=== PATIENT | female | born 1980 | race African-American/Black ===

== ENCOUNTER 2018-02-20 06:55 | Inpatient (IN) | payer OTHER ==
[2018-02-20] MEDS ORDERED: ELECTROLYTE-148 SOLN 500 ML IV ONE (07:15)
[2018-02-20 07:57] VITALS: BMI 31.3
[2018-02-20] MEDS ORDERED: CITRIC ACID/SODIUM CITRATE 30 ML UNIT-DOSE CUP PO ONE (08:06)
[2018-02-20] MEDS ORDERED: ELECTROLYTE-148 SOLN 1,000 ML IV SCH (08:15)
[2018-02-20] MEDS ORDERED: PHENYLEPHRINE HCL 10 MG/1 ML SINGLE DOSE VIAL ONE (08:19)
[2018-02-20] MEDS ORDERED: morphine SULFATE/Preservative Free 0.5 MG/ML (1cc Syringe) ONE (08:19)
[2018-02-20] MEDS ORDERED: ceFAZolin SODIUM 1 GM VIAL ONE (08:19)
--- NOTE | 2018-02-20 08:21 | HP ---
Past Medical History - Primary Care Physician PCP:: Harika Mcdonald - Admission Chief Complaint: 37 yrs , previous c/section x2 , admitted for repeat c/ section, requests for repeat c/section .39 weeks gestation by dates & sono History of Present Illness: PNC at 2, [facility] wt gain 47 lbs . h/o with IUD, [facility] before pt came to [address] [place] [address] panel : 07/12/17 O Pos, Hbsag neg, Rpr nr, Rubella immune, Varicella non immune, Sickle trait pos ( significant other sickle neg ) , pap NILM, Hpv neg, gc/ct neg . Hiv neg Urine gbs pos treated with Po keflex 11/29/17 : 1 hr gtt 146, Quantiferon neg, rpr nr, 3 hr GTT wnl ( 75, 159, 168, 137 ) AMA, declined genetic counselling NT screen, Modified Sequential neg growth sono done by [facility] last sono on 01/13/18 33.5 weeks, ant placenta, vx, lucius 14, efw 5'13' h/o Cold sores , Hsv1 Igg & Hsv2 igg pos . 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 G2 Repeat c/section 03/25/15 7'15" [facility] ) ...Term: 2 ...LMP: 05/22/17 ... Weeks Gestation by Dates: 39.1 ...EDC by Dates: 02/26/18 ...EDC by Sono: 02/26/18 (39.1 weeks ) Heme/Onc: Yes: Anemia (rx po iron & pnv) Infectious Disease: No: AIDS, HIV, STD's, Tuberculosis Psych: No: Addictions, Anxiety, Bipolar, Depression, Panic, Psychosis, Schizophrenia, Other Endocrine: No: Diabetes Insipidus, Diabetes Mellitus - Past Surgical History Past Surgical History: Yes: (05/06/10t [facility] hosp 03/25/15 at [facility] Repeat c/s) Hx Myomectomy: No Hx Transabdominal Cerclage: No - Smoking History Smoking history: Never smoked Have you smoked in the past 12 months: No - Alcohol/Substance Use Hx Alcohol Use: No History of Substance Use: reports: None - Social History History of Recent Travel: No Home Medications - Allergies Allergies/Adverse Reactions: Allergies Allergy/AdvReac Type Severity Reaction Status Date / Time No Known Drug Allergies Allergy Verified 03/25/15 07:15 OKRA Allergy Mild Itching Uncoded 03/25/15 07:00 - Home Medications Home Medications: Ambulatory Orders Ferrous Sulfate [Feosol] 325 mg PO BID 03/24/15 Pnv,Calcium 72/Iron/Folic Acid [ Plus Tablet] 1 each PO DAILY 03/24/15 Acetaminophen [Tylenol .Regular Strength -] 650 mg PO Q4H PRN #0 tablet Ibuprofen [Motrin -] 600 mg PO Q4H PRN #20 tablet 03/27/15 Vitamins ([facility]) - 1 tab PO DAILY tablet 03/27/15 Home Medications (free text): valtrex 500 mg po one daily Physical Exam - Maternity Vital Signs: Vital Signs Temperature 98.4 F 02/20/18 06:55 Pulse Rate 89 02/20/18 06:55 Respiratory Rate 18 02/20/18 06:55 Blood Pressure 122/76 02/20/18 06:55 O2 Sat by Pulse Oximetry (%) Selected Entries 02/20/18 06:55 Weight 194 lb Constitutional: Yes: Well Nourished, Obese Eyes: Yes: WNL HENT: Yes: WNL, Normocephalic Neck: Yes: WNL Cardiovascular: Yes: WNL, Regular Rate and Rhythm Lungs: Clear to auscultation Breast(s): Yes: WNL - Abdominal Exam/OB Fundal Height: 38 Number of Fetuses: Single Presentation: Vertex Contractions: Yes Regularity: Irregular (6-7 min) Intensity: Mild Monitor Mode: External Heart Rate (range): 145 Heart Rate Location: [facility] Category: I Accelerations: Uniform Decelerations: None - Vaginal Exam/OB Vaginal Bleediing: No Presentation: Vertex/Position - Physical Exam Musculoskeletal: Yes: WNL Extremities: Yes: WNL. No: Calf Tenderness Edema: LLE: 1+, RLE: 1+ Integumentary: Yes: Incision (keloid ,pfannensteil scar) Deep Tendon Reflex Grade: Normal +2 ...Motor Strength: WNL Psychiatric: Yes: WNL, Alert, Oriented - Labs Lab Results: Laboratory Tests 02/17/18 02/17/18 02/17/18 15:49 15:49 15:49 WBC 8.9 Hgb 12.0 Hct 37.2 D Plt Count 178 Neutrophils % 70.2 Lymphocytes % 19.1 D Monocytes % 7.2 PT with INR 11.10 INR 0.94 Sodium 136 Potassium 3.9 Chloride 102 Carbon Dioxide 24 BUN 4 L Creatinine 0.4 L Random Glucose 87 Calcium 8.9 Total Bilirubin 0.3 AST 25 ALT 24 RPR Titer 02/17/18 15:49 WBC Hgb Hct Plt Count Neutrophils % Lymphocytes % Monocytes % PT with INR INR Sodium Potassium Chloride Carbon Dioxide BUN Creatinine Random Glucose Calcium Total Bilirubin AST ALT RPR Titer Nonreactive Hemorrhage Risk Assessment - Risk Factors Medium Risk Factors: Yes: Prior , uterine surgery,or multiple laparotomies Risk Score: 1 Risk Level: Medium Risk Problem List - Problems (1) Positive GBS test Code(s): B95.1 - STREPTOCOCCUS, GROUP B, CAUSING DISEASES CLASSD ELSWHR (2) Previous delivery affecting Code(s): O34.21 - MATERNAL CARE FOR SCAR FROM PREVIOUS * DO NOT USE * (3) with 39 completed weeks gestation Code(s): Z3A.39 - 39 WEEKS GESTATION OF (4) AMA (advanced maternal age) multigravida 35+ Code(s): O09.529 - SUPERVISION OF ELDERLY MULTIGRAVIDA, UNSPECIFIED TRIMESTER (5) Multiparity Code(s): Z64.1 - PROBLEMS RELATED TO MULTIPARITY Assessment/Plan 37 yrs , previous c/s x2 , gbs pos voluntory sterlization Plan repeat LFTC/section & BTL under spinal anesthesia
[2018-02-20] MEDS ORDERED: ACETAMINOPHEN 325 MG TABLET (FP) PO PRN (08:22)
[2018-02-20] MEDS ORDERED: BUPIVACAINE 0.75% IN DEXTROSE/PF 2ML AMPULE NR ONE (08:29)
[2018-02-20 09:39] LABS: ARTERIAL BLD GAS O2 SATURATION 5.6 % (90-98.9); ARTERIAL BLOOD GAS BASE EXCESS -1.2 meq/l (-2-2)
[2018-02-20 09:43] LABS: ARTERIAL BLOOD GAS PCO2 74.2 mmHg (35-45); ARTERIAL BLOOD GAS PO2 8.4 mmHg (80-100); ARTERIAL BLOOD GAS pH 7.21 (7.35-7.45)
[2018-02-20] MEDS ORDERED: IBUPROFEN 800 MG/8 ML IJ IVPB PRN (09:43)
[2018-02-20] MEDS ORDERED: METHYLERGONOVINE MALEATE 0.2 MG/1 ML AMP IM PRN (09:43)
[2018-02-20] MEDS ORDERED: OXYTOCIN 20 UNITS in 0.9% NS 20 UNIT/1,000 ML INFUS.BAG IV SCH (09:45)
[2018-02-20 09:55] LABS: VENOUS PC02 43.2 mmHg (38-52); VENOUS PH 7.33 (7.32-7.42); VENOUS PO2 22.6 mmHg (28-48)
--- NOTE | 2018-02-20 10:07 | PN ---
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
--- NOTE | 2018-02-20 10:20 | OP ---
Operative Note - Note: Operative Date: 02/20/18 Pre-Operative Diagnosis: 39 weeks, previous c/sx2, voluntary sterilization Operation: repeat LFTC/S & BTL Findings: 8.53AM, baby Girl, 9/9 , wt 9'7' Ht 19" , LOT position, AFluid mecolnium stained Both tubes & ovaries normal both tubes ligated, cut by modified quan technique hemostasis noted Surgeon: Harika Mcdonald Hardness Inspector: Deann Holden) Anesthesiologist/DYNAMICIST: Jan Sellers Anesthesia: Spinal Specimens Removed: incision scar. cord blood segment for cord gas. cord blood. placenta Estimated Blood Loss (mls): 500 Drains, Volume Out (mls): 400 (early urine live color ) Fluid Volume Replaced (mls): 1,900 (2 gm Iv Ancef prior to incision was given ) Operative Report Dictated: Yes
[2018-02-20] MEDS ORDERED: OXYTOCIN 20 UNITS in 0.9% NS 20 UNIT/1,000 ML INFUS.BAG IV ONE (10:48)
--- NOTE | 2018-02-20 11:52 | OP ---
DATE OF OPERATION: 02/20/2018 PREOPERATIVE DIAGNOSIS: At 39 weeks, previous section x2, voluntary sterilization. OPERATION DONE: A repeat low flap transverse section, bilateral tubal ligation. POSTOPERATIVE DIAGNOSIS: At 39 weeks, previous section x2, voluntary sterilization. SURGEON: Harika Mcdonald MD SIZE ROLLER OPERATOR SURGEON: JOAQUÍN Coffey ANESTHESIOLOGIST: Jan Sellers MD ANESTHESIA: Spinal. FINDINGS: This is a 37-year-old 3 para 2-0-0-2, not in labor, at 39 weeks, and she requests for a voluntary sterilization. Also, she has a skin incision, a Pfannenstiel incision, which is a keloid. PROCEDURE: Patients abdomen was shaved, prepped. Huddleston catheter was placed. She was taken to the operating room table. Spinal anesthesia was given. She was in the supine position. Abdomen was painted and draped in the usual manner. The previous incision keloid scar was held with the Allis clamps, and the elliptical incision was made around the keloid, and the keloid was dissected out, and then , the scar tissue anterior rectus sheath was incised transversely. Muscles were from the rectus sheath. Parietal peritoneum was opened vertically. Then, lower flap of the peritoneum was incised transversely, and the bladder was pushed down. Lower uterine segment was incised transversely. The amniotic fluid was meconium stained. The baby was delivered at 8:53 a.m. from LOT position, a baby girl, was 9 , 9, and baby weight is 9 pound 7 ounces, 19 inch height. Cord was clamped, cut, and then, cord segment was sent for the cord blood gas, and the cord blood was collected. Placenta was removed completely with the membranes. Uterine cavity was cleaned. Then, the uterine incision was closed in 2 layers. The first layer was closed with a continuous locking Biosyn 0 suture, second layer was a continuous intermittently locking with vertical mattress sutures and the second suture with bladder peritoneum was included. Hemostasis was verified. Both tubes and ovaries were normal. The tubes were identified with the fimbriated ends. First the left side, the mid ampullary portion of the tube was doubly ligated with a 2-0 plain catgut, and a portion of the tube above the ligature was cut and sent for pathology examination. Endosalpinx was cauterized. A similar procedure was done on the right tube, and it was a mid ampullary portion of the tube, which was dissected. Both the sides hemostasis was noted. Sponge, instrument, and needle counts were correct. Irrigation was done. Then, the closure of the abdomen was done. The parietal peritoneum was closed with Vicryl 0 suture. Then, the muscles were approximated together with interrupted suture with a Vicryl 0 suture. Then , the anterior rectus sheath was mobilized from the skin scar. Then, the rectus sheath was closed with a Vicryl 0 suture. Continuous sutures were taken. Hemostasis was checked in the subcutaneous tissue in the scar tissue. Then, subcutaneous tissue was approximated with 3-0 Vicryl, and the subcuticular sutures were taken with 4-0 Biosyn suture. Hemostasis was verified, Steri-Strips were applied, and pressure dressing was given. Blood clots were removed from the vagina. Patient tolerated the procedure well. She was transferred to the recovery room in stable condition, and her estimated blood loss was 500 mL. Urine output intraoperatively was 400 mL, it was live colored, and she received 2 g of IV Ancef prior to the incision. Luis [id number] MTDD
[2018-02-20] MEDS: IBUPROFEN 800 MG/8 ML IJ IVPB PRN ×2 (12:16→19:34)
--- NOTE | 2018-02-20 12:57 | SURG ---
Surgery Rehabilitation Supervisor Note Rehabilitation Supervisor: Deann Holden PA-C Date of Service: 02/20/18 Diagnosis: 39 weeks, previous c/sx2, voluntary sterilization Procedure: repeat LFTC/S & BTL I was present for the entirety of the operative procedure. For further detail, please refer to operative report. Visit type - Case Type Case Type: Scheduled - Emergency Emergency Visit: No - New patient This patient is new to me today: Yes Date on this admission: 02/20/18
[2018-02-20] MEDS: CEFAZOLIN 1 GM/D5W 1 GM/50 ML BAG IVPB SCH (15:40)
[2018-02-21] MEDS: CEFAZOLIN 1 GM/D5W 1 GM/50 ML BAG IVPB SCH ×2 (00:32→08:20)
[2018-02-21] MEDS: IBUPROFEN 800 MG/8 ML IJ IVPB PRN (03:16)
[2018-02-21 06:52] LABS: BASO % 0.6 % (0-2.0); EOS % 1.3 % (0-4.5); HEMATOCRIT 36.6 % (32.4-45.2); HEMOGLOBIN 11.6 GM/dL (10.7-15.3); LYMPH % 14.5 % (8-40); MCH 26.9 pg (25.7-33.7); MCHC 31.8 g/dl (32.0-36.0); MEAN CELL VOLUME 84.7 fl (80-96); MEAN PLT VOLUME 8.6 fl (7.5-11.1); NEUT % 75.6 % (42.8-82.8); PLATELET COUNT 163 K/MM3 (134-434); RBC 4.32 M/mm3 (3.60-5.2); RDW 17.2 % (11.6-15.6); WHITE BLOOD COUNT 9.5 K/mm3 (4.0-10.0)
[2018-02-21] MEDS: IBUPROFEN 600 MG TABLET (FP) PO PRN ×3 (08:24→17:49)
[2018-02-21] MEDS: SIMETHICONE 80 MG TAB.CHEW (FP) PO PRN ×4 (08:24→21:07)
[2018-02-21] MEDS: oxyCODONE HCL 5 MG TABLET PO PRN ×4 (08:25→22:08)
--- NOTE | 2018-02-21 09:22 | PN ---
Progress Note (short form) - Note Progress Note: pod 1 doing well, not passing gas yet, sitting on chair, comfortable CBC, BMP 02/21/18 05:15 Last Vital Signs Temp Pulse Resp BP Pulse Ox 97.7 F 104 H 20 120/76 100 02/21/18 06:09 02/21/18 06:09 02/21/18 06:09 02/21/18 06:09 02/20/18 10:50 abdomen soft, mild distension, no cav uterus firm lochia mild no calf tenderness plan ambulate , pain management observe
[2018-02-21] MEDS: ENOXAPARIN NA (PORCINE) 40 MG/0.4 ML DISP.SYRIN SQ SCH (10:00)
[2018-02-21] MEDS: PRENATAL VITAMINS W/ FOLIC ACID TABLET (FP) PO SCH (10:05)
--- NOTE | 2018-02-21 11:08 | PN ---
Progress Note (short form) - Note Progress Note: Anesthesiology post-op 37 y.o. woman POD#1 s/p C/S under spinal with duramorph. She is standing and walking without difficulty, able to use restroom unassisted. Complains only of mild h/a which has improved. VSS. 37 y.o. woman with stable post-operative course. Continue care as per primary team.
[2018-02-21] MEDS: BISACODYL 10 MG SUPP.RECT RC PRN ×2 (12:44→22:09)
[2018-02-21] MEDS: SENNOSIDES/DOCUSATE COMBO (SENNA PLUS) TABLET (UD) PO PRN (21:07)
[2018-02-21] MEDS: FERROUS SO4 325 MG TABLET (FP) PO SCH (21:07)
[2018-02-21] MEDS: ACETAMINOPHEN 325 MG TABLET (FP) PO PRN (22:09)
[2018-02-22] MEDS: SIMETHICONE 80 MG TAB.CHEW (FP) PO PRN ×5 (03:32→20:45)
[2018-02-22] MEDS: oxyCODONE HCL 5 MG TABLET PO PRN ×3 (03:32→11:55)
[2018-02-22] MEDS: ACETAMINOPHEN 325 MG TABLET (FP) PO PRN ×5 (03:33→20:45)
[2018-02-22] MEDS: FERROUS SO4 325 MG TABLET (FP) PO SCH ×2 (10:37→21:03)
[2018-02-22] MEDS: ENOXAPARIN NA (PORCINE) 40 MG/0.4 ML DISP.SYRIN SQ SCH (10:37)
[2018-02-22] MEDS: PRENATAL VITAMINS W/ FOLIC ACID TABLET (FP) PO SCH (10:37)
--- NOTE | 2018-02-22 12:24 | PN ---
Post Progress Note Type of Delivery: Repeat C/S Vital Signs: Vital Signs Temperature 98 F 02/22/18 09:05 Pulse Rate 104 H 02/22/18 09:05 Respiratory Rate 20 02/22/18 09:05 Blood Pressure 130/87 02/22/18 09:05 O2 Sat by Pulse Oximetry (%) 100 02/20/18 10:50 Breast Exam: Yes: Soft Uterus: Yes: Fundus Firm Incision: Yes: Dressing dry and intact Abdomen/GI: Yes: Abdomen soft Lochia: Yes: Rubra Lochia, amount: Small Extremities: Yes: Calves non-tender Perineum: Yes: Intact Activity: Ambulating (Tolerating po. Passed flatus. Complaining of normal postoperative discomforts.) - Labs Labs: CBC WBC 9.5 K/mm3 (4.0-10.0) 02/21/18 05:15 RBC 4.32 M/mm3 (3.60-5.2) 02/21/18 05:15 Hgb 11.6 GM/dL (10.7-15.3) 02/21/18 05:15 Hct 36.6 % (32.4-45.2) 02/21/18 05:15 MCV 84.7 fl (80-96) 02/21/18 05:15 MCH 26.9 pg (25.7-33.7) 02/21/18 05:15 MCHC 31.8 g/dl (32.0-36.0) L 02/21/18 05:15 RDW 17.2 % (11.6-15.6) H 02/21/18 05:15 Plt Count 163 K/MM3 (134-434) 02/21/18 05:15 MPV 8.6 fl (7.5-11.1) 02/21/18 05:15 Absolute Neuts (auto) 7.2 K/mm3 (1.5-8.0) 02/21/18 05:15 Neutrophils % 75.6 % (42.8-82.8) 02/21/18 05:15 Lymphocytes % 14.5 % (8-40) D 02/21/18 05:15 Monocytes % 8.0 % (3.8-10.2) 02/21/18 05:15 Eosinophils % 1.3 % (0-4.5) 02/21/18 05:15 Basophils % 0.6 % (0-2.0) 02/21/18 05:15 Nucleated RBC % 0 % (0-0) 02/21/18 05:15 Assessment/Plan 37yo s/p RLTCS, BTL, PPD#2 Routine PP care Labs reviewed Encouraged OOB, ambulate Motrin, Percocet prn D/C to home POD#4 Dejah Orellana MD
[2018-02-22] MEDS: IBUPROFEN 600 MG TABLET (FP) PO PRN ×2 (16:39→20:42)
[2018-02-23] MEDS: IBUPROFEN 600 MG TABLET (FP) PO PRN ×3 (06:24→23:22)
[2018-02-23] MEDS: ACETAMINOPHEN 325 MG TABLET (FP) PO PRN ×3 (06:26→23:23)
[2018-02-23] MEDS: SIMETHICONE 80 MG TAB.CHEW (FP) PO PRN ×2 (06:34→13:34)
[2018-02-23 08:37] LABS: HEMATOCRIT 31.3 % (32.4-45.2); HEMOGLOBIN 10.3 GM/dL (10.7-15.3); LYMPH % 25.8 % (8-40); MCH 27.3 pg (25.7-33.7); MCHC 32.7 g/dl (32.0-36.0); MEAN CELL VOLUME 83.3 fl (80-96); MEAN PLT VOLUME 8.1 fl (7.5-11.1); NEUT % 60.7 % (42.8-82.8); PLATELET COUNT 192 K/MM3 (134-434); RBC 3.76 M/mm3 (3.60-5.2); RDW 16.6 % (11.6-15.6); WHITE BLOOD COUNT 4.9 K/mm3 (4.0-10.0)
[2018-02-23 08:38] LABS: BASO % 0.5 % (0-2.0); EOS % 2.6 % (0-4.5); MONO % 10.4 % (3.8-10.2)
[2018-02-23] MEDS: PRENATAL VITAMINS W/ FOLIC ACID TABLET (FP) PO SCH (10:56)
[2018-02-23] MEDS: FERROUS SO4 325 MG TABLET (FP) PO SCH ×2 (10:56→23:22)
[2018-02-23] MEDS: ENOXAPARIN NA (PORCINE) 40 MG/0.4 ML DISP.SYRIN SQ SCH (10:56)
--- NOTE | 2018-02-23 12:37 | PN ---
Post Progress Note Type of Delivery: Repeat C/S Vital Signs: Vital Signs Temperature 98.6 F 02/23/18 10:00 Pulse Rate 87 02/23/18 10:00 Respiratory Rate 20 02/23/18 10:00 Blood Pressure 124/74 02/23/18 10:00 O2 Sat by Pulse Oximetry (%) 100 02/20/18 10:50 Uterus: Yes: Fundus below umbilicus Incision: Yes: Dressing dry and intact Abdomen/GI: Yes: Abdomen soft Lochia: Yes: Rubra Lochia, amount: Small Extremities: Yes: Calves non-tender Activity: Ambulating (Tolerating po. Passing flatus. Ambulating without difficulty) - Labs Labs: CBC WBC 4.9 K/mm3 (4.0-10.0) 02/23/18 05:25 RBC 3.76 M/mm3 (3.60-5.2) 02/23/18 05:25 Hgb 10.3 GM/dL (10.7-15.3) L 02/23/18 05:25 Hct 31.3 % (32.4-45.2) L 02/23/18 05:25 MCV 83.3 fl (80-96) 02/23/18 05:25 MCH 27.3 pg (25.7-33.7) 02/23/18 05:25 MCHC 32.7 g/dl (32.0-36.0) 02/23/18 05:25 RDW 16.6 % (11.6-15.6) H 02/23/18 05:25 Plt Count 192 K/MM3 (134-434) 02/23/18 05:25 MPV 8.1 fl (7.5-11.1) 02/23/18 05:25 Absolute Neuts (auto) 3.0 K/mm3 (1.5-8.0) 02/23/18 05:25 Neutrophils % 60.7 % (42.8-82.8) 02/23/18 05:25 Lymphocytes % 25.8 % (8-40) D 02/23/18 05:25 Monocytes % 10.4 % (3.8-10.2) H 02/23/18 05:25 Eosinophils % 2.6 % (0-4.5) D 02/23/18 05:25 Basophils % 0.5 % (0-2.0) 02/23/18 05:25 Nucleated RBC % 0 % (0-0) 02/21/18 05:15
[2018-02-23] MEDS: oxyCODONE HCL 5 MG TABLET PO PRN (14:54)
--- NOTE | 2018-02-23 16:01 | PN ---
Progress Note (short form) - Note Progress Note: Patient complaining of headache and neck stiffness No relief with NSAIDs, Percocet Exacerbated by sitting or standing. Some improvement with laying No light sensitivity BPs stable Concern or possible spinal headache, will discuss with Anesthesia Zoey Orellana MD
--- NOTE | 2018-02-23 16:48 | PN ---
Progress Note (short form) - Note Progress Note: Anesthesia Consult Request to assess the patient regarding headache. Pat is 37 yo female, POD#3 S/p Repeat and BTL under spinal, with no complications or problems when spinal was placed. Co/ headache starating at 13:00 today. Describing tension in back of the neck, with frontal headache when standing and walking. Improved after NSAID and percocet.Since the surgery had a mild headache but today pain 9/10 when standing /sitting and 4-5/10 when lying down. Denies n/v or sensitivity to light.H/o PIH during previous pregnancies, but not thie recent one. Otherwise healthy. Ambulating, tolerating PO. VSS. Afebrile. PE: AAOX3. NAD. Lying on the bed. Changed position to sitting. No limitation on neck /head ROM. TTP posterior neck and thoracic paraspinal muscles. TTP shoulders bilat. A/P: Tension in upper back and neck muscles. Not giving an impression of PDPH currently. Recommending, Fioricet,spasmolytic medication and physical therapy. Please contact us if symptoms worsen or new symptoms, N/v, fever,visaual disturbance.
[2018-02-23] MEDS: SENNOSIDES/DOCUSATE COMBO (SENNA PLUS) TABLET (UD) PO PRN (23:23)
[2018-02-24] MEDS: oxyCODONE HCL 5 MG TABLET PO PRN (05:56)
[2018-02-24] MEDS: ENOXAPARIN NA (PORCINE) 40 MG/0.4 ML DISP.SYRIN SQ SCH (09:25)
[2018-02-24] MEDS: FERROUS SO4 325 MG TABLET (FP) PO SCH (09:25)
--- NOTE | 2018-02-24 09:25 | DS ---
Physical Examination Vital Signs: Vital Signs Temperature 98.6 F 02/23/18 21:23 Pulse Rate 81 02/23/18 21:23 Respiratory Rate 18 02/23/18 21:23 Blood Pressure 118/77 02/23/18 21:23 O2 Sat by Pulse Oximetry (%) 100 02/20/18 10:50 Constitutional: Yes: Well Nourished, No Distress, Calm Eyes: Yes: WNL, Conjunctiva Clear, EOM Intact HENT: Yes: WNL, Atraumatic, Normocephalic Neck: Yes: WNL, Supple, Trachea Midline Cardiovascular: Yes: WNL, Regular Rate and Rhythm Respiratory: Yes: WNL, Regular, CTA Bilaterally Gastrointestinal: Yes: WNL, Normal Bowel Sounds Musculoskeletal: Yes: WNL Extremities: Yes: WNL Edema: No Integumentary: Yes: WNL Neurological: Yes: WNL, Alert, Oriented ...Motor Strength: WNL Psychiatric: Yes: WNL Labs: CBC, BMP 02/23/18 05:25 Discharge Summary Reason For Visit: C SECTION Current Active Problems AMA (advanced maternal age) multigravida 35+ (Acute) Multiparity (Acute) with 39 completed weeks gestation (Acute) Procedures: Principal: RLTCS Other Procedures: BTL Hospital Course: Patient presented for routine RLTCS, BTL She underwent an uncomplicated procedure She met all postoperative milestones She was discharged home on POD#4 Condition: Stable - Instructions Diet, Activity, Other Instructions: Post Instructions DIET: Continue good diet high in protein, calcium, and iron rich foods. Drink at least eight (8) glasses of water daily in addition to other fluids. ___ Regular diet MEDICATIONS: Continue vitamins and iron as previously directed. Motrin and Tylenol may be taken for minor discomfort. ACTIVITY: Mild to moderate exercise may be started in two (2) weeks. Take frequent rest periods. Resume normal activity after six (6) week check up. WOUND CARE OF OPERATIVE SITE: Continue use of perineal bottle until vaginal discharge stops. Keep area clean. Shower daily. Keep abdominal wound dry. Report any drainage or redness to physician. Tub baths, tampons and douches are not permitted for [address] Breast feeding & or Bottle feeding BREAST CARE: (For those that are not ): If engorgement occurs: Wear tight fitting bra. Take Tylenol or Motrin for pain. Apply cold packs (ice in bags to each breast ) FAMILY PLANNING: There are many control alternatives to pursue and they should be discussed at your first office visit. You may resume sexual activity after your six (6) week check up. (Remember, breast feeding is not a contraceptive) NEXT PHYSICIAN APPOINTMENT: Be certain to call for a one (1 ) week appointment, unless otherwise directed. rtc Saturday for wound check Call Clinic or got to Emergency Dept if you have any of the following: Heavy vaginal bleeding Painful urination Leg pain Unusual odor noted to vaginal bleeding High fever Red streaking noted on breast Referrals: Harika Mcdonald MD [Staff Physician] - Disposition: HOME - Home Medications Comprehensive Discharge Medication List: Ambulatory Orders Vitamins ([facility]) - 1 tab PO DAILY 02/20/18 Valacyclovir HCl [Valtrex] 500 mg PO DAILY 02/20/18 Ibuprofen 600 mg PO Q6H PRN #30 tablet 02/22/18 Oxycodone HCl/Acetaminophen [Percocet 5-325 mg Tablet -] 1 - 2 tab PO Q6H PRN # 20 tab MDD 4 02/22/18
[2018-02-24] MEDS: PRENATAL VITAMINS W/ FOLIC ACID TABLET (FP) PO SCH ×2 (09:28→12:01)
[2018-02-24 09:58] VITALS: BP 130/84; PULSE 84; TEMP 98.7
--- NOTE | 2018-02-28 14:31 | PATH ---
Surgical Pathology Report Patient Name: MARISSA MACIAS Med. Rec. #: [id number] /Age/Gender: 1980 (Age: 37) / F Account: [id number] Location: [facility] OBS/COLLECTION DEVELOPMENT LIBRARIAN Taken: 02/20/2018 Received: 02/21/2018 Reported: 02/28/2018 Physicians: Harika Mcdonald M.D. 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 PLACENTA: THIRD TRIMESTER PLACENTA. TRIVASCULAR CORD. MEMBRANES WITH NO DIAGNOSTIC ABNORMALITIES. B. RIGHT FALLOPIAN TUBE, RESECTION: COMPLETE CROSS SECTION OF THE FALLOPIAN TUBE IDENTIFIED. C. LEFT FALLOPIAN TUBE, RESECTION: COMPLETE CROSS SECTION OF THE FALLOPIAN TUBE IDENTIFIED. D. SKIN SCAR, EXCISION: SEGMENT OF SKIN WITH KELOID. Electronically Signed Cammy Garg M.D. Gross Description A. The specimen is received fresh labeled placenta and is a 661 gram, 18.0 x 16.0 x 3.3 cm. placenta with attached membranes and umbilical cord. The attached membranes are rojas, translucent with focal opacities and insert marginally. The umbilical cord measures 23 cm. in length and averages 1.2 cm. in diameter. The cord inserts centrally. No true knots or strictures are identified. Cut surface of the umbilical cord reveals 3 vessels. The surface is cabello green, meconium stained with minimal fibrin deposition and appropriate caliber vessels. The maternal surface is red-brown with focal defects. Sectioning reveals red-brown, spongy parenchyma. No lesions are identified. Category Development Analyst sections are submitted in three cassettes as follows: 1- membrane rolls and umbilical cord; 2-3- full thickness sections of placenta. B. Received in formalin labeled "right fallopian tube," is a 1.8 cm in length portion of fallopian tube. No fimbria are present. The outer surface is rojas-cabello and smooth. Sectioning reveals an unremarkable lumen. Category Development Analyst sections are submitted in one cassette. C. Received in formalin labeled "left fallopian tube," is a 1.6 cm in length portion of fallopian tube. No fimbria are present. The outer surface is rojas-cabello and smooth. Sectioning reveals an unremarkable lumen. Category Development Analyst sections are submitted in one cassette. D. Received in formalin labeled "skin scar," is a 12.0 x 1.5 cm brown, elongated portion of skin. The epidermal surface displays a central, linear, hypertrophied scar. Category Development Analyst sections are submitted in one cassette. 02/27/201802/27/2018
== END 2018-02-24 15:00 | disposition home or self-care (01) | DRG 540 ==
LOC: JLDR 06:55 → J3W 11:29
PROVIDERS: ADMIT Obstetrics & Gynecology; ATTEND Obstetrics & Gynecology
PROC: 10D00Z1 Extraction of Products of Conception, Low, Open Approach (ICD-10-PCS; principal; 2018-02-20)
PROC: 0U570ZZ Destruction of Bilateral Fallopian Tubes, Open Approach (ICD-10-PCS; 2018-02-20)
DX: O99.824 Streptococcus B carrier state complicating childbirth (principal); O34.219 Maternal care for unspecified type scar from previous cesarean delivery; Z3A.39 39 weeks gestation of pregnancy; Z37.0 Single live birth; Z30.2 Encounter for sterilization
CPT/HCPCS: 36415; 36600; 82803; 85025; 88302-TC; 88304-TC; 88307-TC